=== PATIENT | male | born 1975 | race Caucasian/White ===

== ENCOUNTER 2021-03-26 01:22 | Inpatient (IN) | payer OTHER ==
[2021-03-26] MEDS ORDERED: ACETAMINOPHEN 500 MG TABLET (FP) PO ONE (02:47)
[2021-03-26] MEDS ORDERED: SODIUM CHLORIDE 1,000 ML IV STA (02:47)
[2021-03-26] MEDS ORDERED: ACETAMINOPHEN 325 MG TABLET (FP) ONE (02:50)
[2021-03-26 03:26] LABS: CHLORIDE 105 mmol/L (98-107); SODIUM 139 mmol/L (136-145)
[2021-03-26 03:28] LABS: ALBUMIN 4.2 g/dl (3.4-5.0); CALCIUM 8.7 mg/dL (8.5-10.1); LIPASE 872 U/L (73-393)
[2021-03-26 03:29] LABS: ANION GAP 5 MMOL/L (8-16); BLOOD UREA NITROGEN 20.2 mg/dL (7-18); CO2 29 mmol/L (21-32); GLUCOSE,RANDOM 94 mg/dL (74-106)
[2021-03-26 03:31] LABS: CREATININE 1.2 mg/dL (0.55-1.3); SGOT/AST 23 U/L (15-37); SGPT/ALT 66 U/L (13-61)
[2021-03-26 03:33] LABS: BILIRUBIN,TOTAL 1.3 mg/dL (0.2-1); TOT PROT 7.6 g/dl (6.4-8.2)
[2021-03-26 03:34] LABS: ALK PHOS 75 U/L (45-117)
[2021-03-26 03:46] LABS: MONO % 8.9 % (3.8-10.2); WHITE BLOOD COUNT 5.2 K/mm3 (4.0-10.0)
[2021-03-26 03:52] LABS: BASO % 1.2 % (0-2.0); EOS % 4.3 % (0-4.5); HEMATOCRIT 41.9 % (35.4-49); HEMOGLOBIN 15.4 GM/dL (11.7-16.9); LYMPH % 47.1 % (8-40); MCH 30.1 pg (25.7-33.7); MCHC 36.7 g/dl (32.0-35.9); MEAN CELL VOLUME 82.2 fl (80-96); MEAN PLT VOLUME 7.8 fl (7.5-11.1); NEUT % 38.5 % (42.8-82.8); PLATELET COUNT 215 K/MM3 (134-434); RDW 13.5 % (11.9-15.9)
[2021-03-26] MEDS: LACTATED RINGERS SOLUTION 1,000 ML IV SCH ×2 (11:00→23:12)
[2021-03-26 11:52] VITALS: BMI 29.3
[2021-03-26] MEDS: ENOXAPARIN NA (PORCINE) 40 MG/0.4 ML DISP.SYRIN SQ SCH (12:36)
[2021-03-26 12:39] LABS: PH,URINE 6.5 (5.0-8.0); URINE APPEARANCE CLEAR; URINE BILIRUBIN NEGATIVE (NEGATIVE); URINE COLOR YELLOW; URINE GLUCOSE (UA) NEGATIVE (NEGATIVE); URINE KETONE 1+ (NEGATIVE); URINE LEUK ESTERASE NEGATIVE (NEGATIVE); URINE NITRITE NEGATIVE (NEGATIVE); URINE PROTEIN NEGATIVE (NEGATIVE)
[2021-03-27 05:44] VITALS: BP 132/77; PULSE 71; TEMP 97.7
[2021-03-27 09:35] LABS: EOS % 4.4 % (0-4.5); HEMATOCRIT 42.8 % (35.4-49); HEMOGLOBIN 15.1 GM/dL (11.7-16.9); MCH 29.3 pg (25.7-33.7); MCHC 35.3 g/dl (32.0-35.9); MEAN CELL VOLUME 82.9 fl (80-96); MEAN PLT VOLUME 7.6 fl (7.5-11.1); MONO % 10.5 % (3.8-10.2); NEUT % 41.1 % (42.8-82.8); PLATELET COUNT 221 K/MM3 (134-434); RBC 5.16 M/mm3 (4.00-5.60); RDW 13.3 % (11.9-15.9); WHITE BLOOD COUNT 4.9 K/mm3 (4.0-10.0)
[2021-03-27 09:51] LABS: CALCIUM 8.7 mg/dL (8.5-10.1)
[2021-03-27 09:52] LABS: MAGNESIUM 2.2 mg/dL (1.8-2.4)
[2021-03-27 09:56] LABS: PHOSPHOROUS 2.7 mg/dL (2.5-4.9)
[2021-03-27 09:57] LABS: BILIRUBIN,TOTAL 1.1 mg/dL (0.2-1); TOT PROT 7.2 g/dl (6.4-8.2)
[2021-03-27] MEDS: ENOXAPARIN NA (PORCINE) 40 MG/0.4 ML DISP.SYRIN SQ SCH (10:05)
[2021-03-27] MEDS: LACTATED RINGERS SOLUTION 1,000 ML IV SCH (11:20)
== END 2021-03-27 13:15 | disposition home or self-care (01) | DRG 249 ==
LOC: JER 01:22 → JERBED 06:27 → J8W 10:21
PROVIDERS: ADMIT Internal Medicine; ATTEND Internal Medicine
DX: A08.39 Other viral enteritis (principal); E66.9 Obesity, unspecified; G47.33 Obstructive sleep apnea (adult) (pediatric); K76.0 Fatty (change of) liver, not elsewhere classified; K62.5 Hemorrhage of anus and rectum; K64.4 Residual hemorrhoidal skin tags; Z68.29 Body mass index [BMI] 29.0-29.9, adult
CPT/HCPCS: 36415; 74177-TC; 80053; 81003; 82272; 82550; 82553; 83690; 83735; 83993; 84100; 84443; 84484; 84999; 85025; 87045; 87046; 87205; 87324; 87338; 87449; 87804; 93005; 93010; 99285-25; C9803; U0003; U0005